=== PATIENT | male | born 1945 | race Two or more races ===

== ENCOUNTER 2024-10-13 13:39 | Inpatient (IN) | payer MEDICARE, OTHER ==
[~2024-10-13] VITALS: Ht 182.9 cm; Wt 57.9 kg
[2024-10-13] MEDS: VANCOMYCIN 1 GM/200 ML IV ONE (01:00)
--- NOTE | 2024-10-13 14:04 | ED.PDOC ---
History of Present Illness HPI Comments 79 y/o M, HEIDI presents to the ED for CC of weakness. EMS reports, patient is coming from the middle [facility] where his [place] live [place] EMS states, they were dispatched to the area by a surrounding neighbor that looks after the couple reporting patient appeared more weak than usual. Upon arrival to scene, patient was found disoriented and covered in his own feces and urine. EMS comments, that patient and live in unlivable conditions by choice. No other symptoms, modifiers, or PMHx obtainable at this time due to patient's current state. Time Seen by MD: 13:55 Reviewed Notes: Nurses Notes, Track Laying Machine Operator Notes, Medications, Allergies Allergies: Coded Allergies: UNOBTAINABLE (Unverified , 10/13/24) Information Source: Emergency Med Personnel Mode of Arrival: EMS Severity: Moderate Timing: Days Duration: Since onset Prehospital treatment: None Past Medical History PAST MEDICAL HISTORY: Unobtainable Surgical History: Unobtainable Family History Family History: Unobtainable Social History Smoker: Unobtainable Alcohol: Unobtainable Drugs: Unobtainable Lives In: Homeless Unable to Obtain due to: Altered Mental Status Physical Exam General Appearance: Moderate Distress, Other ( DISHEVELED APPERANCE, COVERED IN FECES AND URINE) HEENT: Normal ENT Inspection, Pharynx Normal, TMs Normal Neck: Full Range of Motion, Non-Tender, Normal, Normal Inspection Respiratory: Chest Non-Tender, Lungs Clear, No Accessory Muscle Use, No Respiratory Distress, Normal Breath Sounds Cardiovascular: No Edema, No JVD, No Murmur, No Gallop, Normal Peripheral Pulses, Regular Rate/Rhythm Breast Exam: Deferred Gastrointestinal: No Organomegaly, Non Tender, No Pulsatile Mass, Normal Bowel Sounds, Soft Genitalia: Deferred Pelvic: Deferred Rectal: Deferred Extremities: No calf tenderness, Normal capillary refill, Normal inspection, Normal range of motion, Non-tender, No pedal edema Musculoskeletal : Apperance: Normal Neurologic: Disoriented, Other (NON-VERBAL) Cerebellar Function: Normal Reflexes: Normal Skin: Dry, Normal Color, Warm Lymphatic: No Adenopathy Was a procedure done? Was a procedure done?: No Differential Dx Considerations may include: CVA, ACS, viral syndrome, electrolyte abnormality, infectious etiology X-Ray, Labs, Meds, VS Vital Signs Date Time Temp Pulse Resp B/P (MAP) Pulse Ox O2 Delivery O2 Flow Rate FiO2 10/13/24 16:26 94 16 145/84 (104) 92 10/13/24 14:45 101 10/13/24 14:10 98.4 105 16 127/77 (94) 93 98.4 10/13/24 14:10 105 16 93 Room Air* 0 21 10/13/24 14:05 98.7 98 20 141/89 (106) 96 98.7 Lab Test 10/13/24 16:09 10/13/24 15:10 Range/Units Troponin I High Sensitivity 35 38 </=54 ng/L White Blood Count 13.6 H 4.4-10.8 10^3/uL Red Blood Count 3.23 L 4.5-5.90 10^6/uL Hemoglobin 9.8 L 13.5-17.5 g/dL Hematocrit 30.9 L 41.0-53.0 % Mean Corpuscular Volume 95.7 80.0-100.0 fL Mean Corpuscular Hemoglobin 30.2 28.0-32.0 pg Mean Corpuscular Hemoglobin Concent 31.6 L 32.0-36.0 g/dL Red Cell Distribution Width 15.2 H 11.8-14.3 % Platelet Count 384 140-450 10^3/uL Mean Platelet Volume 7.4 6.9-10.8 fL Neutrophils (%) (Auto) 82.1 H 37.0-80.0 % Lymphocytes (%) (Auto) 7.1 L 10.0-50.0 % Monocytes (%) (Auto) 10.7 0.0-12.0 % Eosinophils (%) (Auto) 0.0 0.0-7.0 % Basophils (%) (Auto) 0.1 0.0-2.0 % Neutrophils # (Auto) 11.1 H 1.6-8.6 10 ^3/uL Lymphocytes # (Auto) 1.0 0.4-5.4 10 ^3/uL Monocytes # (Auto) 1.5 H 0-1.3 10 ^3/uL Eosinophils # (Auto) 0 0-0.8 10 ^3/uL Basophils # (Auto) 0 0-0.2 10 ^3/uL Nucleated Red Blood Cells 0.0 % Sodium Level 138 136-145 mmol/L Potassium Level 4.1 3.5-5.1 mmol/L Chloride Level 101 98-107 mmol/L Carbon Dioxide Level 27 20-31 mmol/L Anion Gap 10 5-15 Blood Urea Nitrogen 30 H 9-23 mg/dL Creatinine 1.11 0.700-1.30 mg/dL Glomerular Filtration Rate Calc 68 >90 mL/min BUN/Creatinine Ratio 27.0 H 10.0-20.0 Serum Glucose 108 H 74-106 mg/dL Lactic Acid Level 1.5 0.4-2.0 mmol/L Calcium Level 9.0 8.7-10.4 mg/dL Total Bilirubin 0.9 0.2-1.0 mg/dL Aspartate Amino Transferase (AST) 46 H 13-40 U/L Alanine Aminotransferase (ALT) 41 H 7-40 U/L Alkaline Phosphatase 220 H 46-116 U/L Total Protein 6.6 5.7-8.2 g/dL Albumin 3.5 3.2-4.8 g/dL [place] [address] Ph: [phone] DIAGNOSTIC IMAGING Diagnostic Imaging Report : [id number] Signed PATIENT: NEGIN YOU ACCT: [id number] UNIT: [id number] : 1945 LOC: ER ROOM / BED: / AGE / SEX: 79 / M ADM STATUS: REG ER SERVICE 1421 ORDERING PHYSICIAN: DALTON PEREZ MD PROCEDURE(s): CXRP - CHEST PORTABLE REASON: weakness ORDER NUMBER(s): [id number], ACCESSION NUMBER(s): [id number] CHEST PORTABLE, HISTORY: weakness COMPARISON: None None TECHNICAL DATA: 1 view of the chest was obtained. FINDINGS: Lines and tubes: None Cardiomediastinal silhouette: normal Pulmonary vasculature: normal Lung expansion: normal Lung airspace: normal Lung interstitium: normal Pleura: normal Pneumothorax: no Bones: Unremarkable Other: no IMPRESSION: No acute intrathoracic abnormality. ATED BY: ELKIN JACKMAN MD DICTATED DATE/TIME: 10/13/24 1087 SIGNED BY: ELKIN JACKMAN MD SIGNED DATE/TIME: 10/13/24 1527 CC: [place] [address] Ph: [phone] DIAGNOSTIC IMAGING Diagnostic Imaging Report : [id number] Signed PATIENT: NEGIN YOU ACCT: [id number] UNIT: [id number] : 1945 LOC: ER ROOM / BED: / AGE / SEX: 79 / M ADM STATUS: REG ER SERVICE 1421 ORDERING PHYSICIAN: DALTON PEREZ MD PROCEDURE(s): HWOCT - HEAD WITHOUT CONTRAST REASON: weakness ORDER NUMBER(s): [id number], ACCESSION NUMBER(s): [id number] Procedure: CT HEAD WITHOUT CONTRAST Study Date and Requested Time: 10/13/2024 02:44 PM History: weakness Comparison: None Dose: CTDI: 56.68 mGy DLP: 1003.71 mGycm Technique: Multiplanar images obtained through the brain without intravenous contrast. Findings: Cyrb-ex-rselyqvm diffuse brain atrophy. Moderate chronic small-vessel ischemic changes. Hypodensity over the left temporal lobe with foci of hypodensity over the left basal ganglia and periventricular bilateral frontal lobes. No hemorrhages, masses, mass effect, midline shift, or herniation. No intra- axial or extra-axial fluid collections. No evidence of hydrocephalus. The basal cisterns are patent. There is cavum septum pellucidum. The pituitary gland appears slightly prominent measuring up to 10 mm in craniocaudal diameter and 13 mm in AP diameter. The cerebellar tonsils are in normal position. The cerebellum is unremarkable. The orbits and globes are unremarkable. The paranasal sinuses and mastoids are clear. There are no worrisome calvarial lesions. Impression: Hypodensity over the left cerebellum with small foci of hypodensities over the left basal ganglia and periventricular bilateral frontal lobes which may represent lacunar infarcts of unknown chronicity, likely chronic. MRI would be helpful for further evaluation. The pituitary gland appears slightly prominent. Pituitary protocol MRI should be considered further evaluation. ATED BY: ANAY GONZALEZ DO DICTATED DATE/TIME: 10/13/24 1513 SIGNED BY: ANAY GONZALEZ DO SIGNED DATE/TIME: 10/13/24 151 CC: Time of 1ST Reevaluation: 14:25 Reevaluation 1ST: Unchanged Patient Education/Counseling: Pt Unresponsive Family Education/Counseling: No Family Present Departure 1 Departure Time of Disposition: 17:12 (Patient with altered mental status poor conditioning and overall failure to thrive. We will admit patient for further workup and expert consultation) Impression: Primary Impression: Metabolic encephalopathy Additional Impression: Generalized weakness Disposition: ADMITTED INPATIENT Admit to: Med Surg Condition: Serious Critical Care Note Critical Care Time?: No Stability Stability form required: No Heart Score Heart Score: Heart Score Response (Comments) Value History N/A 0 EKG N/A 0 Age N/A 0 Risk Factors N/A 0 Troponin N/A 0 Total 0 I personally scribed for DALTON PEREZ MD ([email or web address]) on 10/13/24 at 14:04. Electronically submitted by Mary Aly ([employer]). I personally scribed for DALTON PEREZ MD ([email or web address]) on 10/13/24 at 16:11. Electronically submitted by Mary Aly ([employer]). I personally scribed for DALTON PEREZ MD ([email or web address]) on 10/13/24 at 16:13. Electronically submitted by Mary Aly ([employer]). DALTON PEREZ MD Oct 13, 2024 14:04
[2024-10-13 14:10] VITALS: PULSE 105; RESP 16; O2SAT 93
--- NOTE | 2024-10-13 15:15 | DVH ---
Procedure: CT HEAD WITHOUT CONTRAST Study Date and Requested Time: 10/13/2024 02:44 PM History: weakness Comparison: None Dose: CTDI: 56.68 mGy DLP: 1003.71 mGycm Technique: Multiplanar images obtained through the brain without intravenous contrast. Findings: Iuns-do-bndeaqpm diffuse brain atrophy. Moderate chronic small-vessel ischemic changes. Hyp odensity over the left temporal lobe with foci of hypodensity over the left basal ganglia and periven tricular bilateral frontal lobes. No hemorrhages, masses, mass effect, midline shift, or herniation. No intra-axial or extra-axial flui d collections. No evidence of hydrocephalus. The basal cisterns are patent. There is cavum septum pel lucidum. The pituitary gland appears slightly prominent measuring up to 10 mm in craniocaudal diameter and 13 mm in AP diameter. The cerebellar tonsils are in normal position. The cerebellum is unremarkable. The orbits and globes are unremarkable. The paranasal sinuses and mastoids are clear. There are no wo rrisome calvarial lesions. Impression: Hypodensity over the left cerebellum with small foci of hypodensities over the left basal ganglia and periventricular bilateral frontal lobes which may represent lacunar infarcts of unknown chronicity, likely chronic. MRI would be helpful for further evaluation. The pituitary gland appears slightly prominent. Pituitary protocol MRI should be considered further e valuation.
--- NOTE | 2024-10-13 15:29 | DVH ---
XY CHEST PORTABLE, HISTORY: weakness COMPARISON: None None TECHNICAL DATA: 1 view of the chest was obtained. FINDINGS: Lines and tubes: None Cardiomediastinal silhouette: normal Pulmonary vasculature: normal Lung expansion: normal Lung airspace: normal Lung interstitium: normal Pleura: normal Pneumothorax: no Bones: Unremarkable Other: no IMPRESSION: No acute intrathoracic abnormality.
[2024-10-13 15:44] LABS: Basophils # (auto) 0 10 ^3/uL (0-0.2); Basophils % (auto) 0.1 % (0.0-2.0); Eosinophils # (auto) 0 10 ^3/uL (0-0.8); Hematocrit 30.9 % (41.0-53.0); Hemoglobin 9.8 g/dL (13.5-17.5); Lymphocytes % (auto) 7.1 % (10.0-50.0); Mean Corpuscular Hemoglobin 30.2 pg (28.0-32.0); Mean Corpuscular Hgb Conc. 31.6 g/dL (32.0-36.0); Mean Corpuscular Volume 95.7 fL (80.0-100.0); Monocytes # (auto) 1.5 10 ^3/uL (0-1.3); Monocytes % (auto) 10.7 % (0.0-12.0); Neutrophils # (auto) 11.1 10 ^3/uL (1.6-8.6); Neutrophils % (auto) 82.1 % (37.0-80.0); Platelet Count (auto) 384 10^3/uL (140-450); Red Blood Cells 3.23 10^6/uL (4.5-5.90); Red Cell Distribution Width 15.2 % (11.8-14.3); White Blood Cell 13.6 10^3/uL (4.4-10.8)
[2024-10-13 15:48] LABS: Albumin 3.5 g/dL (3.2-4.8); Anion Gap 10 (5-15); Bilirubin, Total 0.9 mg/dL (0.2-1.0); Carbon Dioxide 27 mmol/L (20-31); Chloride 101 mmol/L (98-107); Potassium 4.1 mmol/L (3.5-5.1); Sodium 138 mmol/L (136-145); Total Protein 6.6 g/dL (5.7-8.2)
[2024-10-13 16:20] LABS: Alanine Aminotransferase 41 U/L (7-40); Alkaline Phosphatase 220 U/L (46-116); Aspartate Aminotransferase 46 U/L (13-40); Blood Urea Nitrogen 30 mg/dL (9-23); Glucose 108 mg/dL (74-106)
[2024-10-13 19:20] VITALS: PULSE 83; RESP 12; O2SAT 90
[2024-10-13] MEDS ORDERED: MORPHINE SULFATE INJ 2 MG/ml SYRG IV PRN (21:15)
[2024-10-13] MEDS ORDERED: NITROGLYCERIN 0.4 MG SL TAB SL PRN (21:15)
[2024-10-13] MEDS: LACTATED RINGER'S 1,000 ML IV ONE ×2 (22:30)
[2024-10-13] MEDS: PANTOPRAZOLE 40 MG/10 ML VIAL INJ IV ONE (22:45)
--- NOTE | 2024-10-13 22:57 | DVHHPRES ---
History of Present Illness Resident Creating Document: RK PATTERSON RESIDENT History of Present Illness Mr. Meyer, a 79-year-old homeless male with unknown medical history was brought in by EMS to the emergency department due to worsening generalized weakness and altered level of consciousness upon. He and his live in the middle [facility] under poor conditions, EMS noted that the couple lives in unlivable conditions by choice as reported by a neighbor. Upon arrival, the patient was disoriented and covered in feces and urine with extremely poor hygiene. No additional medical history or symptoms were obtainable due to the patient's altered mental state. The patient's allergies, past medical, surgical, family, and social histories were unobtainable. No contact was found partial available information reviewed from nurses, paramedics, and emergency medical personnel. The patient was admitted to the hospital with presumptive full code. Past Medical History Unknown/unobtainable Past Surgical History Unknown/unobtainable Family History Unknown/unobtainable Past Social History Unknown/unobtainable Review of Systems Review of Systems Unknown/unobtainable Allergies: Coded Allergies: UNOBTAINABLE (Unverified , 10/13/24) Medications Current Medications Medications Dose Ordered Sig/Nicki Route Start Time Stop Time Status Last Admin Dose Admin Nitroglycerin 0.4 mg Q5MINP PRN SL 10/13/24 21:15 Morphine Sulfate 2 mg Q30M PRN IV 10/13/24 21:15 Pantoprazole Sodium 40 mg DAILY IV 10/14/24 10:00 Vancomycin HCl 0 ml @ 0 mls/hr UD IV 10/13/24 23:00 UNV Piperacillin Sod/ Tazobactam Sod 100 ml @ 25 mls/hr Q8HR IV 10/14/24 06:00 Exam Vital Signs Vital Signs Date Time Temp Pulse Resp B/P (MAP) Pulse Ox O2 Delivery O2 Flow Rate FiO2 10/13/24 22:00 81 118/67 (84) 95 10/13/24 21:00 12 10/13/24 19:20 98.6 98.6 10/13/24 19:20 Room Air* 0 21 General Appearance: Alert, mild distress, Other (Patient not able to interact, making sounds incoherent. Extremely poor hygiene.) HEENT: Other (Dry mucosa) Respiratory: Clear to auscultation, Normal air movement, Other (Bilateral basal rales positive) Cardiovascular: Regular rate, Normal S1, Normal S2, No murmurs, Gallops, Rubs Abdominal: Normal bowel sounds, Soft, No tenderness, No hepatospenomegaly, No masses Extremities: Other (Right lower limb wounds, scabs.) Neuro: Sensation intact, Other (can not review GCS, patient is not following commands. Breathing in the room air, able to protect airways.) Psych/Mental Status: Other (Reactive mood.) Labs/Xrays Labs Test 10/13/24 18:16 10/13/24 15:10 Range/Units Troponin I High Sensitivity 38 </=54 ng/L White Blood Count 13.6 H 4.4-10.8 10^3/uL Red Blood Count 3.23 L 4.5-5.90 10^6/uL Hemoglobin 9.8 L 13.5-17.5 g/dL Hematocrit 30.9 L 41.0-53.0 % Mean Corpuscular Volume 95.7 80.0-100.0 fL Mean Corpuscular Hemoglobin 30.2 28.0-32.0 pg Mean Corpuscular Hemoglobin Concent 31.6 L 32.0-36.0 g/dL Red Cell Distribution Width 15.2 H 11.8-14.3 % Platelet Count 384 140-450 10^3/uL Mean Platelet Volume 7.4 6.9-10.8 fL Neutrophils (%) (Auto) 82.1 H 37.0-80.0 % Lymphocytes (%) (Auto) 7.1 L 10.0-50.0 % Monocytes (%) (Auto) 10.7 0.0-12.0 % Eosinophils (%) (Auto) 0.0 0.0-7.0 % Basophils (%) (Auto) 0.1 0.0-2.0 % Neutrophils # (Auto) 11.1 H 1.6-8.6 10 ^3/uL Lymphocytes # (Auto) 1.0 0.4-5.4 10 ^3/uL Monocytes # (Auto) 1.5 H 0-1.3 10 ^3/uL Eosinophils # (Auto) 0 0-0.8 10 ^3/uL Basophils # (Auto) 0 0-0.2 10 ^3/uL Nucleated Red Blood Cells 0.0 % Sodium Level 138 136-145 mmol/L Potassium Level 4.1 3.5-5.1 mmol/L Chloride Level 101 98-107 mmol/L Carbon Dioxide Level 27 20-31 mmol/L Anion Gap 10 5-15 Blood Urea Nitrogen 30 H 9-23 mg/dL Creatinine 1.11 0.700-1.30 mg/dL Glomerular Filtration Rate Calc 68 >90 mL/min BUN/Creatinine Ratio 27.0 H 10.0-20.0 Serum Glucose 108 H 74-106 mg/dL Lactic Acid Level 1.5 0.4-2.0 mmol/L Calcium Level 9.0 8.7-10.4 mg/dL Total Bilirubin 0.9 0.2-1.0 mg/dL Aspartate Amino Transferase (AST) 46 H 13-40 U/L Alanine Aminotransferase (ALT) 41 H 7-40 U/L Alkaline Phosphatase 220 H 46-116 U/L Total Protein 6.6 5.7-8.2 g/dL Albumin 3.5 3.2-4.8 g/dL Assessment/Plan Assessment/Plan #Likely toxic versus metabolic encephalopathy: altered level of consciousness/ALOC present at admission: CT head unremarkable. Unable to assess NIHSS/ stroke examination, and BG 108. Could be multifactorial. Correct electrolytes, continue delirium precautions. #Severe dehydration: Intravascular fluid depletion, likely to poor p.o. intake, poor history, IV fluid rehydration with LR. intravascular dehydration, low turgor, Patient denying Gordon's catheter/further workup but altered level of consciousness likely clouding the judgment. #Likely history of essential hypertension: hypertensive 141/89 tropes negative. Keep the patient on telemetry, sinus rhythm, orthostatic vitals to check when patient is more stable.-cachectic 17.3 bmi, low muscle mass: High-risk of refeeding syndrome. #Urinary tract infection (UTI): UA positive, urine culture, blood culture pending. Empiric coverage with Zosyn and vancomycin to continue. #Multiple wounds on right leg, scabbed: Likely skin and soft tissue infection, wound consult, wound culture to obtain, along with blood culture, empiric coverage to continue for now. #Possible Aspiration pneumonia: Gram-positive versus Gram-negative, differentials include CAP, clear lungs but 90-92% of oxygen saturation as needed oxygen to keep the SpO2 of 94, check sputum culture, COVID, influenza. #Sepsis likely due to above: No lactic acidosis, leukocytosis 13.6, predominant neutrophilia, lymphopenia, monocytosis, source of infection yet to determine, could be right foot skin infection, mrsa, which was. Status post sepsis dose IV fluid and empiric antibiotics for now. #Normocytic anemia: hemoglobin 9.8, RDW elevated, check iron level, ferritin, FOBT, elevated BUN 30, IV ppi to continue to rule out acute GI bleed. Avoid is NSAIDs, aspirin. #Transaminitis: 46, 41, 220 alk-phos, avoid hepatotoxic, trend CMP, no icterus, RUQ U/S to check. Check comprehensive hepatitis panel. #Cerebral chronic ischemic changes: Chronic Lacunar infarct likely chronic, noted in CT head, MRI pending, avoid anticoagulation. Acute vascular encephalopathy to ruled out. Aspirin atorvastatin to continue inappropriate. #New onset of weakness: chronic stroke, CT , aspirin, atorvastatin when able to swallow/eat safely., MRI pending, PT. Swallow eval pending. #Failure to thrive: BMI of 17.3, limited history, npo for now, dietary consult, high-protein diet when appropriate. Baseline unknown, fall precautions, physical therapy physician tomorrow. High-risk of refeeding syndrome. #Poor personal hygiene: Patient was per presented with smear with own stool and urine. mental health issues vs toxicology vs underlying neurological diseases to ruled out. #extremely limited medical history, further history to be obtained as soon as possible. Diet: NPO for now DVT prophylaxis: SCD only. GI prophylaxis: IV PPI Code status: Patient could not give any reasonable history, due to altered level of consciousness, no next kin address/phone number noted. Patient apparently lives with the and a very poor hygienic condition in the middle of the lives in the [place]. Presumptive admission with full code until further decided. Patient care, chart review, treatment plan needed total 39 minutes of detailed medical work. Plan, discussed with Dr. Cheung. Plan discussed with: Patient (not understanding. ), Other (primary team, RN) My Orders Orders - RK PATTERSON RESIDENT Procedure Category Date Status Time Admit ADMIT 10/13/24 Transmitted 21:10 Nitroglycerin PHA 10/13/24 In Process Sublingual (Ntrostat 21:15 Morphine Sulfate PHA 10/13/24 In Process Injection 21:15 Oxygen By Nasal RT 10/13/24 Transmitted Cannula 21:10 Stat Ekg For Chest [facility] 10/13/24 In Process Pain 21:10 Notify Of Changes MARISA 10/13/24 In Process From Base 21:10 Restorative Aide For [facility] 10/13/24 In Process 24 Hours 21:10 Emergency Dysrhythmia [facility] 10/13/24 In Process Protocol 21:10 Rhythm Strips Once MARISA 10/13/24 In Process Every Shift 21:10 Complete Blood Count LAB 10/14/24 Verified 04:00 Comprehensive LAB 10/14/24 Verified Metabolic Panel 04:00 Thyroid Stimulating LAB 10/13/24 Logged Hormone 22:28 Vitamin B12 LAB 10/13/24 Logged 22:28 Iron Panel LAB 10/13/24 Logged 22:28 Ferritin LAB 10/13/24 Logged 22:28 Stool Occult Blood LAB 10/13/24 Logged 22:28 Npo (Nothing By DIET 10/14/24 Transmitted Mouth) Diet Breakfast Drug Screen LAB 10/13/24 Logged 22:28 Creatine Kinase LAB 10/13/24 Logged 22:28 Prothrombin Time W/ LAB 10/13/24 Logged INR 22:28 Blood Alcohol LAB 10/13/24 Logged 22:28 Pt Request For Service PT 10/13/24 Logged 22:28 Fall Precautions [facility] 10/13/24 In Process Initiated 22:28 Fall Risk Precautions [facility] 10/13/[address] 22:28 Lactated Ringer's PHA 10/13/24 In Process 22:30 Lactated Ringer's PHA 10/13/24 In Process 22:30 Covid19 Antigen Radha LAB 10/13/24 Logged Rapid Influenza A&B LAB 10/13/24 Logged 22:28 Magnesium LAB 10/13/24 Logged 22:28 Phosphorus LAB 10/13/24 Logged 22:28 Osmolality, Serum LAB 10/13/24 Logged 22:37 Brain Head Wo Contrast MRI 10/13/24 Logged 22:37 Pantoprazole PHA 10/14/24 In Process (Protonix) 10:00 Mrsa Screen ÁNGEL 10/13/24 Logged 22:37 Hemoglobin A1c LAB 10/13/24 Logged 22:37 Vancomycin Per PHA 10/13/24 Pending Pharmacy 23:00 Piperacillin-Tazob PHA 10/13/24 In Process 3.375gm (Zosyn 3.375g 23:00 Piperacillin-Tazob PHA 10/14/24 In Process 3.375gm (Zosyn 3.375g 06:00 * Wound Consult CONS 10/13/24 Transmitted Wound Culture W/ Gs ÁNGEL 10/13/24 Uncollected 22:46 Sequential MARISA 10/13/24 In Process Compression Device 22:49 Code Status CODE 10/13/24 Transmitted 22:50 LIVER US 10/14/24 Logged 07:00 Vancomycin 1gm/250ml PHA 10/13/24 In Process Kit 23:00 Date of Service: Oct 13, 2024 Billing Provider: SOCO CHEUNG MD, SUMAN RESIDENT Oct 13, 2024 22:57
[2024-10-13] MEDS: VANCOMYCIN 1GM/200ML PM 250 ML IV ONE (23:00)
[2024-10-13] MEDS: PIPERACILLIN-TAZOB 3.375GM 100 ML IV ONE (23:00)
[2024-10-13] MEDS ORDERED: VANCOMYCIN PER PHARMACY 0 MG IV SCH (23:00)
[2024-10-13 23:04] VITALS: BP 112/58; PULSE 76; RESP 17; TEMP 98.5; O2SAT 96
[2024-10-13 23:46] LABS: INR 1.19 (0.9-1.15); Prothrombin Time 12.4 sec (9.3-11.8)
[2024-10-13 23:55] LABS: Magnesium 2.3 mg/dL (1.6-2.6)
[2024-10-13 23:56] LABS: Phosphorus 3.4 mg/dL (2.4-5.1)
[2024-10-13 23:59] LABS: Ferritin 408.6 ng/mL (22-322)
[2024-10-13 23:59] LABS: Urine Bacteria MANY /hpf (None Seen); Urine Blood 3+ /uL (Negative); Urine Clarity Ex.Turbid (Clear); Urine Color Brown (Yellow); Urine Mucus FEW (None Seen); Urine Protein, UAD 2+ (Negative); Urine Specific Gravity 1.022 (1.001-1.035); Urine Squamous Epithelial Cell FEW /hpf (<5); Urine Urobilinogen 2 mg/dL (Negative); Urine WBC 1038 /HPF (0-3); Urine WBC Clumps PRESENT /hpf (None Seen)
[2024-10-14] VITALS (7 sets, daily range): BP systolic 100–142; BP diastolic 40–74; PULSE 75–93; RESP 17–19; TEMP 97.5–99; O2SAT 95–97
[2024-10-14 00:01] LABS: Amphetamine Screen, Urine Neg (NEGATIVE); Barbiturate Scree,Urine Neg (NEGATIVE); Benzodiazephine Screen, Urine Neg (NEGATIVE); Cannabinoid Screen, Urine Neg (NEGATIVE); Cocaine Screen, Urine Neg (NEGATIVE); Opiate Scree,Urine Neg (NEGATIVE); Phencyclidine Screen, Urine Neg (NEGATIVE)
[2024-10-14 00:01] LABS: Blood Alcohol < 3.0 mg/dL (<10); Creatine Kinase IFCC 223 U/L (46-171)
[2024-10-14] MEDS: LACTATED RINGER'S 2,000 ML IV ONE (00:45)
[2024-10-14] MEDS: PIPERACILLIN-TAZOB 3.375GM 100 ML IV SCH (06:20)
--- NOTE | 2024-10-14 08:13 | DVH ---
INDICATION: Transamnitis: rule out hepatobiliary pathology/ obstruction TECHNIQUE: Multiple real-time sonographic images were obtained of the right upper quadrant. COMPARISON: None FINDINGS: The liver demonstrates homogenous echotexture without focal mass lesions. The liver measure s 18cm. There is no intrahepatic or extrahepatic ductal dilatation. The common duct measures 0.4 m m. The gallbladder is without evidence of stone or sludge. The gallbladder wall measures 0.2 mm and is within normal limits. The right kidney measures 9 cm. The right kidney is normal in contour, size, and shape. The echogeni city is normal. There is no hydronephrosis. 2 cm right upper pole renal cyst. The pancreas is not well visualized due to overlying bowel gas. IMPRESSION: No sonographic evidence of gallstones or acute cholecystitis.
[2024-10-14 08:44] LABS: Basophils # (auto) 0 10 ^3/uL (0-0.2); Basophils % (auto) 0.2 % (0.0-2.0); Eosinophils # (auto) 0 10 ^3/uL (0-0.8); Hematocrit 27.7 % (41.0-53.0); Hemoglobin 9.3 g/dL (13.5-17.5); Lymphocytes # (auto) 0.7 10 ^3/uL (0.4-5.4); Lymphocytes % (auto) 6.9 % (10.0-50.0); Mean Corpuscular Hemoglobin 31.7 pg (28.0-32.0); Mean Corpuscular Hgb Conc. 33.7 g/dL (32.0-36.0); Mean Corpuscular Volume 94.2 fL (80.0-100.0); Monocytes # (auto) 1.1 10 ^3/uL (0-1.3); Monocytes % (auto) 11.3 % (0.0-12.0); Neutrophils # (auto) 8.1 10 ^3/uL (1.6-8.6); Neutrophils % (auto) 81.6 % (37.0-80.0); Platelet Count (auto) 409 10^3/uL (140-450); Red Blood Cells 2.94 10^6/uL (4.5-5.90); Red Cell Distribution Width 15.1 % (11.8-14.3)
[2024-10-14 09:03] LABS: Alanine Aminotransferase 30 U/L (7-40); Albumin 3.7 g/dL (3.2-4.8); Anion Gap 8 (5-15); Aspartate Aminotransferase 28 U/L (13-40); BUN/Creatinine Ratio 26.3 (10.0-20.0); Calcium 9.5 mg/dL (8.7-10.4); Carbon Dioxide 29 mmol/L (20-31); Chloride 102 mmol/L (98-107); Sodium 139 mmol/L (136-145); Total Protein 7.1 g/dL (5.7-8.2)
[2024-10-14 09:05] LABS: Alkaline Phosphatase 187 U/L (46-116); Bilirubin, Total 1.2 mg/dL (0.2-1.0); Blood Urea Nitrogen 30 mg/dL (9-23); Glucose 107 mg/dL (74-106)
[2024-10-14] MEDS: PANTOPRAZOLE 40 MG/10 ML VIAL INJ IV SCH (10:13)
[2024-10-14 10:33] LABS: Hepatitis A Total Antibody Negative (Negative); Hepatitis B Surface Antibody Positive (Negative); Hepatitis B Surface Antigen Negative (Negative); Hepatitis C Antibody Negative (Negative)
[2024-10-14 10:35] LABS: Hepatitis B Core Total AB Positive (Negative)
[2024-10-14] MEDS ORDERED: VANCOMYCIN 1GM/200ML PM 250 ML IV SCH (12:00)
[2024-10-14] MEDS: AMPICILLIN & SULBACTAM SODIUM 3 GM in SODIUM CHL 0.9% 100 ML IV SCH (12:36)
[2024-10-14] MEDS: D5W/SOD CHL 0.45% 1,000 ML IV ONE (12:52)
--- NOTE | 2024-10-14 13:47 | DVHSR ---
APPROVED REPORT EXAM: Two-dimensional and M-mode echocardiogram with Doppler and color Doppler. Blood Pressure: 142/58 mmHg INDICATION R/O structural heart disease RISK FACTORS Height: 6', Weight: 128 DIMENSIONS LVDd3.8 (3.8-5.7cm)LA (2D)4.4 (1.9-4.0cm)Aortic Root (2.0-3.7cm) LVDs2.4 (2.5-4.0cm)LA (MM) (1.9-4.0cm)Aortic Cusp Exc (1.5-2.0cm) EF (%) 65.0 (55-70%)Rt. Atrium (1.9-4.0cm)Asc. Aorta cm IVSd1.3 (0.7-1.1cm)RV (D) (1.8-2.4cm) Mitral Valve MitralMitral Stenosis E wave0.59m/sMV Mean GR.mmHg A wave0.70m/sMV Peak GR.mmHg E/A ratio0.82D MVAcm2 DECEL [id number] 1/2 Timems Aortic Valve Aortic ValveAortic Stenosis V11.29m/Cher Mean GR.4mmHg V21.24m/Cher Peak GR.6mmHg LVOT Diameter2.2 (1.8-2.4cm)Doppler AVA3.95cm2 AI P 1/2 Qhgb227.48ms Other Information Quality : Technically LimitedRhythm : Technically limited study due to body habitus. Conclusion lvef 60% moderate LVH normal rv functin left atrium enlarged no severe valve abnormalities noted
[2024-10-14] MEDS: LORazepam 2MG/ML-1ML VIAL IV ONE (14:00)
[2024-10-14] MEDS: DOXYCYCLINE 100MG/100ML 100 ML IV ONE (14:17)
[2024-10-14 14:38] LABS: Rapid Influenza A Negative (Negative)
[2024-10-14 14:39] LABS: Rapid Influenza B Positive (Negative)
--- NOTE | 2024-10-14 16:53 | DVHPNRES ---
Progress Note Date Seen: Oct 14, 2024 Resident Creating Document: JAMES SALGUERO BRITTNEY Has the PT tested + for MRSA If YES, has PT been informed?: No Medical Necessity Reason Pt with a Central, PICC or Fol: No Subjective Review of Systems This is a 79-year-old male with unknown past medical history brought by EMS due to altered mental status and generalized weakness. Per EMS patient was found disoriented and covered with feces/urine and extremely poor hygiene, and the neighbor contacted EMS for hospital transmission. Due to altered mental status review of system could not obtain. Per patient's neighbor, used in his baseline status but recently was complaining of right shoulder pain. Patient reports: No new complaints Objective vital signs Vital Sign Date Time Temp Pulse Resp B/P (MAP) Pulse Ox O2 Delivery O2 Flow Rate FiO2 10/14/24 15:18 Room Air* 0 21 10/14/24 12:50 97.7 78 17 100/70 (80) 95 97.7 Total Intake and Output 10/13/24 10/13/24 10/14/24 15:00 23:00 07:00 Intake Total 0 ml Balance 0 ml medications Current Medications Medications Dose Ordered Sig/Nicki Route Start Time Stop Time Status Last Admin Dose Admin Nitroglycerin 0.4 mg Q5MINP PRN SL 10/13/24 21:15 Morphine Sulfate 2 mg Q30M PRN IV 10/13/24 21:15 Pantoprazole Sodium 40 mg DAILY IV 10/14/24 10:00 10/14/24 10:13 40 MG Doxycycline Hyclate 100 ml @ 50 mls/hr Q12HR IV 10/14/24 22:00 Ampicillin Sodium/ Sulbactam Sodium 3 gm/Sodium Chloride 100 ml @ 100 mls/hr Q6HR IV 10/14/24 12:45 10/14/24 12:36 100 MLS/HR Oseltamivir Phosphate 30 mg BID PO 10/14/24 22:00 10/19/24 21:59 Acetaminophen/ Hydrocodone Bitart 1 tab Q4HPRN PRN PO 10/14/24 15:15 Examination General Appearance: Alert, Oriented X3, Cooperative, No acute distress HEENT: Atraumatic, PERRLA, EOMI, Mucous membrane moist/pink Respiratory: Clear to auscultation, Normal air movement Cardiovascular: Regular rate, Normal S1, Normal S2, No murmurs, no chest wall tenderness Abdominal: Normal bowel sounds, Soft, No tenderness, No hepatospenomegaly, No masses Extremities: No clubbing, No cyanosis, No edema, Normal pulses, No tenderness/swelling Skin: No rashes, No breakdown, No significant lesion Neuro: On neurological exam tongue deviates to the right side, and has right upper limb weakness laboratory and microbiology Laboratory Tests 10/14/24 08:16 Test 10/14/24 08:16 Range/Units Serum Glucose 107 H 74-106 mg/dL Microbiology Date/Time Source Procedure Growth Status 10/13/24 15:10 Blood Blood Culture - Preliminary NO GROWTH AFTER 24 HOURS OF INCUBATION. Resulted Labs and/or images reviewed: Labs reviewed by me, Image(s) reviewed by me Problem List/Assessment/Plan Problem List/Assessment/Plan Acute metabolic encephalopathy, likely due to sepsis Sepsis, likely due to UTI Complicated UTI Pneumonia, likely due to Gram-positive Gram-negative bacteria/viral Influenza type B is positive UA shows UTI picture Urine culture/blood culture Empiric antibiotic, Unasyn and doxycycline IV fluid Tamiflu Transaminitis Moderate anemia, microcytic hypochromic Iron profile shows anemia of chronic disease Right shoulder pain X-ray of right shoulder DIET: Clear liquid diet DVT PROPHYLAXIS: Lovenox GI PROPHYLAXIS:: Protonix CODE STATUS: Goal of care discussed for more than 18 minutes, full code DISPOSITION: Med/surge Called multiple times the patients but could not reached. Patient's status and plan discussed with the nurse. Case discussed with Dr. Euceda. Plan discussed with: Patient, Other (RN) My Orders My Orders Orders - JAMES SALGUERO RESDIAWAIS Procedure Category Date Status Time Neuro Checks Q2hrs MARISA 10/14/24 In Process 12:03 * Swallow Request ST 10/14/24 Transmitted 12:04 Doxycycline PHA 10/14/24 In Process 100mg/100ml 22:00 Ampicillin & PHA 10/14/24 In Process Sulbactam Sodium 12:45 D5w/Sod Chl 0.45% PHA 10/14/24 In Process (D5w 1/2ns) 12:15 Bladder Scan ORDERS 10/14/24 Transmitted 12:10 * Director Medical Writing CONS 10/14/24 Transmitted Consult 14:01 Oseltamivir 30mg PHA 10/14/24 In Process Capsule (Tamiflu 30mg 22:00 Pureed DIET 10/14/24 Transmitted Dinner Hydrocodone-Acet PHA 10/14/24 In Process 5/325mg Tab ([place] 15:15 JAMES SALGUERO RESDIENT Oct 14, 2024 16:53
[2024-10-14] MEDS: OSELTAMIVIR 30 MG CAP PO ONE (17:00)
[2024-10-14] MEDS ORDERED: LORazepam 2MG/ML-1ML VIAL IV ONE (17:15)
[2024-10-14] MEDS: DOXYCYCLINE 100MG/100ML 100 ML IV SCH (21:36)
[2024-10-14] MEDS: OSELTAMIVIR 30 MG CAP PO SCH (21:54)
[2024-10-15] VITALS (8 sets, daily range): BP systolic 101–142; BP diastolic 61–90; PULSE 73–91; RESP 17–19; TEMP 97.3–98.3; O2SAT 95–99
--- NOTE | 2024-10-15 08:20 | DVH ---
CLINICAL INDICATION: Fracture TECHNIQUE: XY R SHOULDER 1V XRAY Comparison: None FINDINGS/IMPRESSION: : There is no evidence of acute fracture or dislocation. Soft tissues are unremarkable. Degenerative changes of the AC joint.
[2024-10-15 10:55] LABS: Basophils # (auto) 0 10 ^3/uL (0-0.2); Basophils % (auto) 0.1 % (0.0-2.0); Eosinophils # (auto) 0 10 ^3/uL (0-0.8); Eosinophils % (auto) 0.4 % (0.0-7.0); Hematocrit 28.1 % (41.0-53.0); Hemoglobin 9.4 g/dL (13.5-17.5); Lymphocytes # (auto) 0.9 10 ^3/uL (0.4-5.4); Lymphocytes % (auto) 14.2 % (10.0-50.0); Mean Corpuscular Hemoglobin 31.6 pg (28.0-32.0); Mean Corpuscular Hgb Conc. 33.5 g/dL (32.0-36.0); Mean Corpuscular Volume 94.4 fL (80.0-100.0); Monocytes # (auto) 0.7 10 ^3/uL (0-1.3); Monocytes % (auto) 10.7 % (0.0-12.0); Neutrophils # (auto) 4.8 10 ^3/uL (1.6-8.6); Neutrophils % (auto) 74.6 % (37.0-80.0); Platelet Count (auto) 460 10^3/uL (140-450); Red Blood Cells 2.97 10^6/uL (4.5-5.90); Red Cell Distribution Width 15.3 % (11.8-14.3); White Blood Cell 6.5 10^3/uL (4.4-10.8)
[2024-10-15 11:03] LABS: Chloride 102 mmol/L (98-107); Sodium 137 mmol/L (136-145)
[2024-10-15 11:04] LABS: Anion Gap 7 (5-15); Carbon Dioxide 28 mmol/L (20-31)
[2024-10-15 11:05] LABS: Calcium 9.5 mg/dL (8.7-10.4)
[2024-10-15 11:09] LABS: BUN/Creatinine Ratio 26.9 (10.0-20.0)
[2024-10-15 11:16] LABS: Blood Urea Nitrogen 29 mg/dL (9-23); Glucose 159 mg/dL (74-106)
[2024-10-15 12:25] LABS: COVID19 ANTIGEN SOFIA FIA NEGATIVE (NEGATIVE)
[2024-10-15] MEDS: HYDROcodone-ACET 5/325MG TAB PO PRN (12:25)
[2024-10-15] MEDS: HALOPERIDOL LACTATE 5 MG/ML INJ VIAL IM ONE (13:45)
--- NOTE | 2024-10-15 17:20 | DVHPNRES ---
Progress Note Date Seen: Oct 15, 2024 Resident Creating Document: JAMES SALGUERO BRITTNEY Has the PT tested + for MRSA If YES, has PT been informed?: No Medical Necessity Reason Pt with a Central, PICC or Fol: No Subjective Review of Systems Patient seen and examined at the bedside. Patient is still confused and could not communicate properly, apparently patient looks better in compared to yesterday Patient reports: No new complaints Objective vital signs Vital Sign Date Time Temp Pulse Resp B/P (MAP) Pulse Ox O2 Delivery O2 Flow Rate FiO2 10/15/24 12:44 97.8 84 18 137/73 (94) 97 97.8 10/15/24 08:00 Room Air* 0 21 Total Intake and Output 10/14/24 10/14/24 10/15/24 15:00 23:00 07:00 Intake Total 340 ml 400 ml Balance 340 ml 400 ml medications Current Medications Medications Dose Ordered Sig/Nicki Route Start Time Stop Time Status Last Admin Dose Admin Nitroglycerin 0.4 mg Q5MINP PRN SL 10/13/24 21:15 Morphine Sulfate 2 mg Q30M PRN IV 10/13/24 21:15 Pantoprazole Sodium 40 mg DAILY IV 10/14/24 10:00 10/15/24 10:30 40 MG Doxycycline Hyclate 100 ml @ 50 mls/hr Q12HR IV 10/14/24 22:00 10/15/24 10:31 50 MLS/HR Ampicillin Sodium/ Sulbactam Sodium 3 gm/Sodium Chloride 100 ml @ 100 mls/hr Q6HR IV 10/14/24 12:45 10/15/24 12:46 100 MLS/HR Oseltamivir Phosphate 30 mg BID PO 10/14/24 22:00 10/19/24 21:59 10/15/24 10:30 30 MG Acetaminophen/ Hydrocodone Bitart 1 tab Q4HPRN PRN PO 10/14/24 15:15 10/15/24 12:25 1 TAB Examination General Appearance: Alert, nonverbal, can not communicate, can not follow simple commands HEENT: Atraumatic, PERRLA, EOMI, Mucous membrane moist/pink Respiratory: Clear to auscultation, Normal air movement Cardiovascular: Regular rate, Normal S1, Normal S2, No murmurs, no chest wall tenderness Abdominal: Normal bowel sounds, Soft, No tenderness, No hepatospenomegaly, No masses Extremities: No clubbing, No cyanosis, No edema, Normal pulses, No tenderness/swelling Skin: No rashes, No breakdown, No significant lesion Neuro: On neurological exam tongue deviates to the right side, and has right upper limb weakness laboratory and microbiology Laboratory Tests 10/15/24 09:20 Test 10/15/24 09:20 Range/Units Serum Glucose 159 H 74-106 mg/dL Microbiology Date/Time Source Procedure Growth Status 10/13/24 15:10 Blood Blood Culture - Preliminary NO GROWTH AFTER 48 HOURS OF INCUBATION. Resulted Labs and/or images reviewed: Labs reviewed by me, Image(s) reviewed by me Problem List/Assessment/Plan Problem List/Assessment/Plan Acute metabolic encephalopathy, likely due to sepsis Sepsis, likely due to UTI Complicated UTI Pneumonia, likely due to Gram-positive Gram-negative bacteria/viral Influenza type B is positive UA shows UTI picture Urine culture/blood culture Empiric antibiotic, Unasyn and doxycycline IV fluid Tamiflu Transaminitis Moderate anemia, microcytic hypochromic Iron profile shows anemia of chronic disease Right shoulder pain X-ray of right shoulder shows no evidence of acute fracture or dislocation Homelessness Per patient's neighbor patient and his is living on the [address] in their neighborhood, tried multiple times to reach out to the but could not cue worker on the board, SW has called Road Sign Installer to do a wellness check on the patients address DIET: Soft mechanical diet DVT PROPHYLAXIS: Lovenox GI PROPHYLAXIS:: Protonix CODE STATUS: Goal of care discussed for more than 18 minutes, full code DISPOSITION: Med/surge Called multiple times the patients but could not reached. Patient's status and plan discussed with the nurse. Case discussed with Dr. Euceda. Plan discussed with: Patient, Other (RN) My Orders My Orders Orders - JAMES SALGUERO Procedure Category Date Status Time R Shoulder 1v Xray XY 10/15/24 Resulted 06:55 Pt Request For Service PT 10/15/24 Logged 13:36 Brain Head Wo Contrast MRI 10/15/24 Logged 13:37 Mechanical Soft Diet DIET 10/15/24 Transmitted Dinner * Instructional Technology Instructor CONS 10/15/24 Transmitted Consult JAMES SALGUERO RESDIAWAIS Oct 15, 2024 17:20
[2024-10-16 00:32] VITALS: BP 125/70; PULSE 80; RESP 16; TEMP 98; O2SAT 93
[2024-10-16 06:17] LABS: Basophils # (auto) 0 10 ^3/uL (0-0.2); Basophils % (auto) 0.4 % (0.0-2.0); Eosinophils # (auto) 0 10 ^3/uL (0-0.8); Eosinophils % (auto) 0.7 % (0.0-7.0); Hematocrit 25.3 % (41.0-53.0); Hemoglobin 8.6 g/dL (13.5-17.5); Lymphocytes # (auto) 1.4 10 ^3/uL (0.4-5.4); Lymphocytes % (auto) 22.3 % (10.0-50.0); Mean Corpuscular Volume 94.3 fL (80.0-100.0); Monocytes % (auto) 15.3 % (0.0-12.0); Neutrophils # (auto) 3.8 10 ^3/uL (1.6-8.6); Neutrophils % (auto) 61.3 % (37.0-80.0); Platelet Count (auto) 428 10^3/uL (140-450); Red Blood Cells 2.68 10^6/uL (4.5-5.90); Red Cell Distribution Width 15.1 % (11.8-14.3); White Blood Cell 6.2 10^3/uL (4.4-10.8)
[2024-10-16 06:34] LABS: Alanine Aminotransferase 25 U/L (7-40); Albumin 3.2 g/dL (3.2-4.8); Anion Gap 8 (5-15); Aspartate Aminotransferase 22 U/L (13-40); BUN/Creatinine Ratio 27.1 (10.0-20.0); Calcium 9.2 mg/dL (8.7-10.4); Carbon Dioxide 29 mmol/L (20-31); Chloride 102 mmol/L (98-107); Potassium 4.4 mmol/L (3.5-5.1); Sodium 139 mmol/L (136-145); Total Protein 6.5 g/dL (5.7-8.2)
[2024-10-16 06:35] LABS: Bilirubin, Total 0.5 mg/dL (0.2-1.0)
[2024-10-16 06:39] LABS: Alkaline Phosphatase 143 U/L (46-116); Blood Urea Nitrogen 26 mg/dL (9-23); Glucose 107 mg/dL (74-106)
[2024-10-16 08:00] VITALS: PULSE 74; PULSE 75; RESP 20; O2SAT 95
[2024-10-16 09:00] VITALS: BP 139/89; PULSE 85; RESP 20; TEMP 97.8; O2SAT 98
[2024-10-16 13:00] VITALS: BP 128/72; PULSE 86; RESP 19; TEMP 97.9; O2SAT 97
--- NOTE | 2024-10-16 16:16 | DVHDSRES ---
Discharge Summary Date of Admission Resident Creating Document: JAMES SALGUERO RESDIENT Oct 13, 2024 at 21:10 Date of Discharge: Oct 16, 2024 Admitting Diagnosis ALOC Labs/Diagnostic Data: Laboratory Results Test 10/16/24 10:32 10/16/24 05:20 10/15/24 11:00 10/14/24 13:05 White Blood Count 6.2 10^3/uL (4.4-10.8) Red Blood Count 2.68 10^6/uL (4.5-5.90) Hemoglobin 8.6 g/dL (13.5-17.5) Hematocrit 25.3 % (41.0-53.0) Mean Corpuscular Volume 94.3 fL (80.0-100.0) Mean Corpuscular Hemoglobin 32.0 pg (28.0-32.0) Mean Corpuscular Hemoglobin Concent 34.0 g/dL (32.0-36.0) Red Cell Distribution Width 15.1 % (11.8-14.3) Platelet Count 428 10^3/uL (140-450) Mean Platelet Volume 7.4 fL (6.9-10.8) Neutrophils (%) (Auto) 61.3 % (37.0-80.0) Lymphocytes (%) (Auto) 22.3 % (10.0-50.0) Monocytes (%) (Auto) 15.3 % (0.0-12.0) Eosinophils (%) (Auto) 0.7 % (0.0-7.0) Basophils (%) (Auto) 0.4 % (0.0-2.0) Neutrophils # (Auto) 3.8 10 ^3/uL (1.6-8.6) Lymphocytes # (Auto) 1.4 10 ^3/uL (0.4-5.4) Monocytes # (Auto) 1.0 10 ^3/uL (0-1.3) Eosinophils # (Auto) 0 10 ^3/uL (0-0.8) Basophils # (Auto) 0 10 ^3/uL (0-0.2) Nucleated Red Blood Cells 0.0 % Sodium Level 139 mmol/L (136-145) Potassium Level 4.4 mmol/L (3.5-5.1) Chloride Level 102 mmol/L (98-107) Carbon Dioxide Level 29 mmol/L (20-31) Anion Gap 8 (5-15) Blood Urea Nitrogen 26 mg/dL (9-23) Creatinine 0.96 mg/dL (0.700-1.30) Glomerular Filtration Rate Calc 81 mL/min (>90) BUN/Creatinine Ratio 27.1 (10.0-20.0) Serum Glucose 107 mg/dL (74-106) Calcium Level 9.2 mg/dL (8.7-10.4) Total Bilirubin 0.5 mg/dL (0.2-1.0) Aspartate Amino Transferase (AST) 22 U/L (13-40) Alanine Aminotransferase (ALT) 25 U/L (7-40) Alkaline Phosphatase 143 U/L (46-116) Total Protein 6.5 g/dL (5.7-8.2) Albumin 3.2 g/dL (3.2-4.8) SARS-CoV-2 Antigen (Rapid) Negative (NEGATIVE) Ammonia < 10 umol/L (11-32) HIV (1&2) Antibody Negative (Negative) Test 10/14/24 12:12 10/14/24 08:16 10/13/24 23:25 10/13/24 23:15 Influenza Type A Antigen Negative (Negative) Influenza Type B Antigen Positive (Negative) Hepatitis A Antibody Total Negative (Negative) Hepatitis B Surface Antigen Negative (Negative) Hepatitis B Surface Antibody Positive (Negative) Hepatitis B Core Total Antibody Positive (Negative) Hepatitis C Antibody Negative (Negative) Urine Color Brown (Yellow) Urine Clarity Ex.turbid (Clear) Urine pH 8.0 (5.0-9.0) Urine Specific [place] 1.022 (1.001-1.035) Urine Protein 2+ (Negative) Urine Ketones Negative (Negative) Urine Blood 3+ /uL (Negative) Urine Nitrite 1+ (Negative) Urine Bilirubin Negative (Negative) Urine Urobilinogen 2 mg/dL (Negative) Urine Leukocyte Esterase 3+ /uL (Negative) Urine RBC 906 /hpf (0 - 3) Urine WBC Clumps Present /hpf (None Seen) Urine Microscopic WBC 1038 /HPF (0-3) Urine Squamous Epithelial Cells Few /hpf (<5) Urine Triple Phosphate Crystals Few /hpf (None Seen) Urine Bacteria Many /hpf (None Seen) Urine Mucus Few (None Seen) Urine Osmolality 738 mOsm/kg Urine Glucose Normal mg/dL (Normal) Urine Opiates Screen Neg (NEGATIVE) Urine Fentanyl Screen Neg (NEGATIVE) Urine Barbiturates Screen Neg (NEGATIVE) Urine Phencyclidine Screen Neg (NEGATIVE) Urine Amphetamines Screen Neg (NEGATIVE) Urine Benzodiazepines Screen Neg (NEGATIVE) Urine Cocaine Screen Neg (NEGATIVE) Urine Cannabinoids Screen Neg (NEGATIVE) Prothrombin Time 12.4 sec (9.3-11.8) Prothrombin Time INR 1.19 (0.9-1.15) Hemoglobin A1c 4.9 % A1C (<5.7) Serum Osmolality 298 mOsm/kg (278-298) Phosphorus Level 3.4 mg/dL (2.4-5.1) Magnesium Level 2.3 mg/dL (1.6-2.6) Iron Level 30 ug/dL (65-175) Total Iron Binding Capacity 187 ug/dL (250-425) Percent Iron Saturation 16.0 % (20-55) Ferritin 408.6 ng/mL (22-322) Creatine Kinase 223 U/L (46-171) Vitamin B12 Level 848 pg/mL (211-911) Thyroid Stimulating Hormone (TSH) 1.57 uIU/mL (0.55-4.78) Plasma/Serum Blood Alcohol < 3.0 mg/dL (<10) Test 10/13/24 18:16 10/13/24 15:10 Troponin I High Sensitivity 38 ng/L (</=54) Lactic Acid Level 1.5 mmol/L (0.4-2.0) Other Laboratory Tests 10/16/24 05:20 Brief Hx & Hospital Course: This is a 79-year-old male with unknown past medical history brought by EMS due to altered mental status and generalized weakness. Per EMS patient was found disoriented and covered with feces/urine and extremely poor hygiene, and the neighbor contacted EMS for hospital transmission. Per patient's neighbor, the patient and his homeless and lives in [facility] neighborhood on a mattress and at baseline the patient is not mobile, could not communicate properly, due to recent right shoulder pain and complaint she called EMS to transfer the patient to the hospital following evaluation. Patient just can communicate few words, reports that he was working in [employer] in the past. Hospital course: Urinalysis showed severe UTI and the patient was put on the line of sepsis due to UTI. And he was also found to have influenza type B. Patient was given IV fluids, empiric antibiotic of doxycycline , Unasyn, Tamiflu, and pain killer. Due to altered mental status CT scan of the brain was performed, showed chronic changes with no acute intracranial abnormalities. Blood culture after 72 hours show no growth. Physical therapy evaluation was performed and recommended SNF placement for physical therapy. Due to shoulder pain, shoulder x-rays performed showed no fracture or dislocation. Echocardiogram performed showed, normal LVEF 60%. During hospital admission multiple times tried to reach out to the patient's but could not reach out. Patient was discharged to the SNF for physical therapy. Discharge plan: SNF placement for physical therapy. Tablet Keflex 500 mg b.i.d. for 5 days, for UTI Tablet ibuprofen 400 mg b.i.d. p.r.n. for pain Tablet Protonix 40 mg daily for 5 days Tablet baclofen 10 mg HS for 5 days Follow up with the PCP within 1 week of the discharge Operations or Procedures [place] [address] Ph: [phone] DIAGNOSTIC IMAGING Diagnostic Imaging Report : [id number] Signed PATIENT: NEGIN YOU ACCT: [id number] UNIT: [id number] : 1945 LOC: ER ROOM / BED: / AGE / SEX: 79 / M ADM STATUS: REG ER SERVICE [id number] ORDERING PHYSICIAN: DALTON PEREZ MD PROCEDURE(s): HWOCT - HEAD WITHOUT CONTRAST REASON: weakness ORDER NUMBER(s): [id number], ACCESSION NUMBER(s): [id number] Procedure: CT HEAD WITHOUT CONTRAST Study Date and Requested Time: 10/13/2024 02:44 PM History: weakness Comparison: None Dose: CTDI: 56.68 mGy DLP: 1003.71 mGycm Technique: Multiplanar images obtained through the brain without intravenous contrast. Findings: [id number] diffuse brain atrophy. Moderate chronic small-vessel ischemic changes. Hypodensity over the left temporal lobe with foci of hypodensity over the left basal ganglia and periventricular bilateral frontal lobes. No hemorrhages, masses, mass effect, midline shift, or herniation. No intra- axial or extra-axial fluid collections. No evidence of hydrocephalus. The basal cisterns are patent. There is cavum septum pellucidum. The pituitary gland appears slightly prominent measuring up to 10 mm in craniocaudal diameter and 13 mm in AP diameter. The cerebellar tonsils are in normal position. The cerebellum is unremarkable. The orbits and globes are unremarkable. The paranasal sinuses and mastoids are clear. There are no worrisome calvarial lesions. Impression: Hypodensity over the left cerebellum with small foci of hypodensities over the left basal ganglia and periventricular bilateral frontal lobes which may represent lacunar infarcts of unknown chronicity, likely chronic. MRI would be helpful for further evaluation. The pituitary gland appears slightly prominent. Pituitary protocol MRI should be considered further evaluation. ATED BY: ANAY GONZALEZ DO DICTATED DATE/TIME: 10/13/241512 SIGNED BY: ANAY GONZALEZ DO SIGNED DATE/TIME: 10/13/24 151 CC: Condition at Discharge: Fair Final Diagnosis/Problems List Acute metabolic encephalopathy, likely due to sepsis Sepsis, likely due to UTI Complicated UTI Pneumonia, likely due to Gram-positive Gram-negative bacteria/viral Influenza type B is positive Transaminitis Moderate anemia, microcytic hypochromic, likely due to chronic this is Right shoulder pain Homelessness Mildl malnutrition Mild rhabdomyolysis History of hypertension Decubitus ulcer, grade 1 Possible previous CVA Dehydration Discharge Disposition: Nursing Home Facility Discharge Instruct/Medications Diet: Cardiac 2g Na,low cholest Activity: No Restrictions, As Tolerated Follow Up/Referral: Follow up with the PCP within 1 week of the discharge. Medications: Keflex 500 mg b.i.d. for 5 days Tablet ibuprofen 400 mg b.i.d. for 7 days Tablet Protonix 40 mg daily for 7 days Tablet baclofen 10 mg during the night for 7 days Discharge Statement: "Patient was advised to return to the ER or call 911 if any headaches, dizziness, shortness of breath, chest pain, abdominal pain, bleeding, fevers, or worsening of medical condition. Patient was counseled about treatment plan, medications, possible side effects, patientverbalized understanding. All questions were answered to the best of my ability. This discharge took greater then 30 minutes in planning, reviewing documentation, counseling the patient, and discussing with other team members." ASSESSMENT ASSESSMENT Assessment Sepsis due to UTI JAMES SALGUERO Oct 16, 2024 16:16
[2024-10-16 16:21] VITALS: BP 128/72; PULSE 86; RESP 19; TEMP 97.9; O2SAT 97
[2024-10-16 17:00] VITALS: BP 130/77; PULSE 80; RESP 21; TEMP 97.8; O2SAT 98
== END 2024-10-16 18:39 | DRG 871 ==
LOC: EDBD 13:39 → ER 13:39 → OVERFLOW 21:10 → TELE-WESTW 21:13 → TELE-EAST 10-15 01:40
PROVIDERS: ADMIT Student in an Organized Health Care Education/Training Program; ATTEND Emergency Medicine
DX: A41.9 Sepsis, unspecified organism (principal); G93.41 Metabolic encephalopathy; J15.69 Pneumonia due to other Gram-negative bacteria; J10.08 Influenza due to other identified influenza virus with other specified pneumonia; J15.9 Unspecified bacterial pneumonia; M62.82 Rhabdomyolysis; Z59.00 Homelessness unspecified; E44.1 Mild protein-calorie malnutrition; N39.0 Urinary tract infection, site not specified; Z68.1 Body mass index [BMI] 19.9 or less, adult; Z20.822 Contact with and (suspected) exposure to COVID-19; R62.7 Adult failure to thrive; L89.891 Pressure ulcer of other site, stage 1; D63.8 Anemia in other chronic diseases classified elsewhere; I10 Essential (primary) hypertension; F17.290 Nicotine dependence, other tobacco product, uncomplicated; E86.0 Dehydration; M25.511 Pain in right shoulder; Z86.73 Personal history of transient ischemic attack (TIA), and cerebral infarction without residual deficits
CPT/HCPCS: 36415; 70450; 71045; 73020; 76705; 80048; 80053; 80307; 80320; 81001; 82140; 82270; 82550; 82607; 82728; 83036; 83540; 83550; 83605; 83735; 83930; 83935; 84100; 84443; 84484; 85025; 85610; 86703; 86704; 86706; 86708; 86803; 87040; 87081; 87086; 87340; 87426; 87804; 92610; 93306; 96365; 96375; 97110; 97116; 97163; 97530; G0378; G9035; J2470; J2543